=== PATIENT | male | born 1965 | race Caucasian/White ===

== ENCOUNTER 2016-08-12 08:36 | Emergency (ER) | payer SELFPAY ==
[2016-08-12 08:50] VITALS: TEMP 98
--- NOTE | 2016-08-12 09:39 | C.PDOC ---
History Of Present Illness 50-year-old male, PMHx includes EtOH Abuse, Anxiety and Depression, presents to the emergency department requesting to be seen by outpatient psychiatrist. Patient reports he is depressed because of his family living in [facility]. States he drinks all three days of the weekend. Patient has had prior evaluations for EtOH abuse. No other complaints at this time. Time Seen by Provider: 08/12/16 09:30 Chief Complaint (Nursing): Anxiety History Per: Patient History/Exam Limitations: no limitations Onset/Duration Of Symptoms: Days Current Symptoms Are (Timing): Still Present Past Medical History Reviewed: Historical Data, Nursing Documentation, Vital Signs Vital Signs: Last Vital Signs Temp 98.0 F 08/12/16 08:49 Pulse 110 H 08/12/16 09:46 Resp 18 08/12/16 09:46 BP 129/90 08/12/16 09:46 Pulse Ox 100 08/12/16 09:46 Family History: States: Unknown Family Hx - Social History Hx Alcohol Use: Yes Hx Substance Use: No - Immunization History Hx Tetanus Toxoid Vaccination: No Hx Influenza Vaccination: No Hx Pneumococcal Vaccination: No Review Of Systems Except As Marked, All Systems Reviewed And Found Negative. Constitutional: Negative for: Fever, Chills Cardiovascular: Negative for: Chest Pain Respiratory: Negative for: Shortness of Breath Gastrointestinal: Negative for: Nausea, Vomiting Musculoskeletal: Negative for: Back Pain Skin: Negative for: Rash Neurological: Negative for: Weakness, Numbness, Headache, Dizziness Psych: Positive for: Anxiety, Depression Physical Exam - Physical Exam Appears: Non-toxic, No Acute Distress, Other (EtOH Abuse. No tremors. ) Skin: Warm, Dry, No Rash Head: Atraumatic, Normacephalic Eye(s): bilateral: Normal Inspection, PERRL Nose: Normal Oral Mucosa: Moist Tongue: Other (No fasciculation.) Neck: Normal ROM Respiratory: Normal Breath Sounds, No Accessory Muscle Use Extremity: Normal ROM ED Course And Treatment O2 Sat by Pulse Oximetry: 99 Medical Decision Making Medical Decision Making: alcohol abuse Anxiety over family problems. no acute issues wants referral to [facility] Disposition Doctor Will See Patient In The: Office Counseled Patient/Family Regarding: Studies Performed, Diagnosis - Disposition Referrals: [facility] [Outside] [facility] [Outside] Disposition: HOME/ ROUTINE Disposition Time: 09:38 Condition: GOOD Additional Instructions: adama de abusar del alcohol [facility] en fren[place] Instructions: Abuse of Alcohol (ED), Anxiety (ED) Print Language: SOUTH SUDANESE - Clinical Impression Clinical Impression: Mixed anxiety depressive disorder, Alcohol intoxication - Scribe Statement The provider has reviewed the documentation as recorded by the Scribkorin Nolan All medical record entries made by the Scribe were at my direction and personally dictated by me. I have reviewed the chart and agree that the record accurately reflects my personal performance of the history, physical exam, medical decision making, and the department course for this patient. I have also personally directed, reviewed, and agree with the discharge instructions and disposition.
[2016-08-12 09:48] VITALS: BP 129/90; PULSE 110; RESP 18
[2016-08-12 12:15] VITALS: O2SAT 99
--- NOTE | 2016-08-22 08:42 | CARD ---
APPROVED REPORT EKG Measurement Heart [id number] <Conclusion> Sinus tachycardia Otherwise normal ECG
== END 2016-08-12 09:49 | disposition home or self-care (01) ==
LOC: C.ER 08:36
DX: F41.8 Other specified anxiety disorders (principal); F10.129 Alcohol abuse with intoxication, unspecified; Y90.9 Presence of alcohol in blood, level not specified

== ENCOUNTER 2018-06-28 16:05 | Emergency (ER) | payer SELFPAY ==
[2018-06-28 16:11] VITALS: BP 148/89; PULSE 95; RESP 18; TEMP 98.1; O2SAT 97
--- NOTE | 2018-06-28 18:34 | C.PDOC ---
History Of Present Illness 52 year old male is brought into the emergency department via [employer] for sleeping on street. Patient is combative and uncooperative in ED. Time Seen by Provider: 06/28/18 16:13 Chief Complaint (Nursing): Substance Abuse History Per: Patient History/Exam Limitations: intoxication Modifying Factor(s): Alcohol Additional History Per: Law Enforcement Past Medical History Reviewed: Historical Data, Nursing Documentation, Vital Signs Vital Signs: Last Vital Signs Temp 98.1 F 06/28/18 16:09 Pulse 95 H 06/28/18 16:09 Resp 18 06/28/18 16:44 BP 148/89 06/28/18 16:09 Pulse Ox 97 06/28/18 16:09 - Medical History PMH: No Chronic Diseases Surgical History: No Surg Hx Family History: States: No Known Family Hx - Social History Hx Alcohol Use: Yes Hx Substance Use: No - Immunization History Hx Tetanus Toxoid Vaccination: No Hx Influenza Vaccination: No Hx Pneumococcal Vaccination: No Review Of Systems Review Of Systems: ROS cannot be obtained secondary to pt's inabilty to answer questions. Physical Exam - Physical Exam Appears: Non-toxic, No Acute Distress, Combative Skin: Normal Color, Warm, Dry Head: Atraumatic, Normacephalic Eye(s): bilateral: Normal Inspection, PERRL, EOMI Nose: Normal Oral Mucosa: Moist Neck: Normal, Supple Chest: Symmetrical, No Tenderness Cardiovascular: Rhythm Regular, No Murmur Respiratory: Normal Breath Sounds, No Rales, No Rhonchi Gastrointestinal/Abdominal: Soft, No Tenderness, No Guarding, No Rebound Extremity: Normal ROM Neurological/Psych: Oriented x3, Normal Speech, Normal Cognition ED Course And Treatment O2 Sat by Pulse Oximetry: 97 (RA) Pulse Ox Interpretation: Normal Medical Decision Making Medical Decision Making: Patient eloped Disposition - Disposition Disposition: ELOPEMENT - ER ONLY Disposition Time: 16:45 Condition: UNKNOWN Forms: [facility] ([place]itan) - Clinical Impression Clinical Impression: Alcohol intoxication - PA / PARTS ADMINISTRATOR / Resident Statement MD/DO has reviewed & agrees with the documentation as recorded. - Scribe Statement The provider has reviewed the documentation as recorded by the Scribe (Edwin Brewster vi) All medical record entries made by the Scribe were at my direction and personally dictated by me. I have reviewed the chart and agree that the record accurately reflects my personal performance of the history, physical exam, medical decision making, and the department course for this patient. I have also personally directed, reviewed, and agree with the discharge instructions and dis position.
== END 2018-06-28 16:45 | disposition left against medical advice (07) ==
LOC: C.ER 16:05
DX: F10.129 Alcohol abuse with intoxication, unspecified (principal); Y90.9 Presence of alcohol in blood, level not specified